=== PATIENT | male | born 1960 | race Two or more races ===

== ENCOUNTER 2019-11-23 23:24 | Emergency (ER) | payer OTHER ==
[~2019-11-23] VITALS: Ht 165.1 cm; Wt 66.7 kg
--- NOTE | 2019-11-23 23:37 | Emergency Room Report ---
History of Present Illness General Chief Complaint: Medical Clearance Source: Patient, Law Enforcement Present Illness HPI Patient is in custody at this time and here for medical clearance. He reported to police that he had a cough and also has a sore throat with a change in his voice. He denies any fevers or chills. He says he is not been around anyone else with known COVID . Apparently he is at a boarding care facility where he has access to his medications. He is being treated for diabetes with metformin and he says he has heart disease that he has medication for. He is uncertain what the medication is that he is taking for that. Accucheck 142 just before transport. No chest pain, palpitations, nausea, vomiting, diarrhea, dysuria, abdominal pain , shortness of breath, joint pain, rashes, depression, anxiety, visual changes, dizziness, headache. Allergies: Coded Allergies: No Known Allergies (Unverified , 11/23/19) COVID-19 Screening Contact w/high risk pt: No Recent Travel to affected area: No Experienced COVID-19 symptoms?: Yes COVID-19 symptoms experienced: Cough Patient History Past Medical History: see triage record, DM Social History: Denies: smoking Social History Narrative board and care Reviewed Nursing Documentation: PMH: Agreed; PSxH: Agreed Nursing Documentation-PMH Hx Cardiac Problems: Yes Hx Diabetes: Yes Review of Systems All Other Systems: negative except mentioned in HPI Physical Exam Vital Signs Date Time Temp Pulse Resp B/P (MAP) Pulse Ox O2 Delivery O2 Flow Rate FiO2 11/23/19 23:30 98.1 67 19 94/55 (68) 98 Sp02 EP Interpretation: reviewed, normal General Appearance: well appearing, no apparent distress, GCS 15 Head: normocephalic Eyes: bilateral eye normal inspection, bilateral eye PERRL ENT: moist mucus membranes, pharyngeal erythema - no exudates Neck: full range of motion, no meningismus Respiratory: lungs clear, normal breath sounds Cardiovascular #1: regular rate, rhythm Gastrointestinal: normal inspection Musculoskeletal: gait/station normal Neurologic: alert, grossly normal Psychiatric: mood/affect normal Skin: normal color, no rash - fully dressed Medical Decision Making Diagnostic Impression: Primary Impression: Viral syndrome Additional Impression: Hyperglycemia ER Course Patient presents with sore throat and cough. Differential includes viral syndrome including COVID, pharyngitis, bronchitis amongst others. Lungs are clear at this time. Patient is nontoxic and has stable vital signs. In addition the patient has a history of diabetes and Accu-Chek was performed prior to his coming and he has had access to his medications. Though initial BP slightly low, patient without symptoms. Based on vital signs and physical exam patient does not need imaging at this time. Patient stable for booking at this time. Status: unchanged Disposition: D/C TO LAW [employer] IN CUST Condition: Stable Scripts Dextromethorphan Hb/Doxylamine (ROBITUSSIN NIGHTTIME COUGH DM) 237 Ml Liquid 5 ML PO Q6HR, #60 ML Prov: Davey Mendoza MD 11/23/19 Acetaminophen (Tylenol) 325 Mg Tablet 650 MG ORAL Q6H PRN for Prn Pain/Headache/Temp > 101, #16 TAB 0 Refills Prov: Davey Mendoza MD 11/23/19 Davey Mendoza MD Nov 23, 2019 23:37
[2019-11-23] MEDS ORDERED: ROBITUSSIN NIG237 ML PO (23:40)
[2019-11-23] MEDS ORDERED: TYLENOL325 MG ORAL (23:40)
--- NOTE | 2019-11-23 23:40 | NUR ---
ED Nurse Note: Recieved pt brought in by police under custody ith need for medical clearance, pt reported to senior care he has had cough for 4 days, no fever, recent travel, or possible exposure per pt, nad, sob or any s/s noted or complaitns.
[2019-11-23 23:45] VITALS: BP 94/55
--- NOTE | 2019-11-23 23:45 | NUR ---
ER DISCHARGE NOTE: Patient is cleared to be discharged per ERMD, pt is aox4, on room air, with stable vital signs. pt was given dc and prescription instructions, pt was able to verbalize understanding, pt id band removed without complications. pt is able to ambulate with steady gait. pt took all belongings.pt d/c with officers under police custody.
== END 2019-11-23 23:45 ==
LOC: EMR 23:39
DX: B34.9 Viral infection, unspecified (principal); E11.65 Type 2 diabetes mellitus with hyperglycemia; R05 Cough; Z79.84 Long term (current) use of oral hypoglycemic drugs; I51.9 Heart disease, unspecified
CPT/HCPCS: 99282